=== PATIENT | female | born 1995 | race Caucasian/White ===

== ENCOUNTER 2017-03-03 15:55 | Emergency (ER) | payer BC ==
[~2017-03-03] VITALS: Ht 167.6 cm; Wt 67.8 kg
[2017-03-03 15:58] VITALS: TEMP 36.6; Ht 167.6 cm; Wt 67.8 kg
[2017-03-03] MEDS ORDERED: MULT-506 PO (16:52)
[2017-03-03] MEDS ORDERED: BCPILLS PO (16:52)
[2017-03-03] MEDS ORDERED: CHOL1000 PO (16:52)
--- NOTE | 2017-03-03 17:48 | EMERGENCY ROOM VISIT NOTE ---
History First contact with patient: 16:16 Chief Complaint: EYE ASSESSMENT Stated Complaint: BLURRY VISION IN LEFT EYE History of Present Illness The patient is a 21 year old female who presents to the Emergency Room via private vehicle with complaints of "blurry vision in left eye". Patient states that around 3 PM today she was looking at her computer screen, when she developed a sensation in the left eye as if she was not able to see directly in front of her. She describes it almost as if the computer screen had a dark [place] in it. Sternum is dark [place] was colorful jagged edges around it. She also states it seemed as though there was a hole in the computer screen. She also notes pain in the temporal region. She states that the affected eye is the left eye. She states that since her drive over here it is diminished, and is nearly subsided. She does not have any history of ocular migraines however does believe that her mother may. She denies any eye pain. Review of Systems A complete 6-point Review of Systems was discussed with the patient, with pertinent positives and negatives listed in the History of Present Illness. All remaining Review of Systems questions can be considered negative unless otherwise specified. Past Medical/Surgical History Eye surgery age 6, anxiety Family History Heart disease, high blood pressure Social History Smoking Status: Never Smoker Social History: Patient lives at home with parents when at home, and is a [employer] student. Current/Historical Medications Scheduled Control Pills ( Control Pills), 1 TAB PO DAILY Cholecalciferol (Vitamin D3), 1,000 UNIT PO DAILY Multivitamin (Multivitamin), 1 TAB PO DAILY Allergies Coded Allergies: Penicillins (Unverified Allergy, Unknown, vomiting, 03/03/17) Prednisone (Unverified Allergy, Unknown, rash, 03/03/17) Sulfa Antibiotics (Unverified Allergy, Unknown, unknown, 03/03/17) Physical Exam Vital Signs Date Time Temp Pulse Resp B/P Pulse Ox O2 Delivery O2 Flow Rate FiO2 03/03/17 17:59 77 18 118/82 99 03/03/17 15:58 36.6 85 18 153/94 99 Right Eye Acuity: 20/50 with glasses Left Eye Acuity: 20/50 with glasses Physical Exam VITAL SIGNS - Vital signs and nursing notes were reviewed. Patient is afebrile , hypertensive at 153/94, non-tachycardic and is saturating well on room air 99% . GENERAL -21-year-old female appearing her stated age. Communicates well with provider and answers questions appropriately. HEAD - Normocephalic, Atraumatic. No Knox's Sign or Raccoon's Eyes. No depressed skull fractures palpable. EYES - PERRL with EOMI bilaterally. Sclera without noticeable foreign body or excoriations. No injection noted in the left eye. Without subconjunctival hemorrhage. Brief fundoscopic exam demonstrates no AV-nicking, cotton wool spots , or flame hemorrhages. Slit lamp examination performed as further described. EARS - No deformities of external structures noted on gross examination bilaterally. Handle of malleus, umbo, cone of light, pars tensa/flaccid all easily visualized. NOSE - Midline and without cyanosis. Without discharge. MOUTH/OROPHARYNX - Without perioral cyanosis. Tongue midline with equal elevation of palate bilaterally. No tonsillar hypertrophy, erythema, or exudates noted. Fair dentition noted. NECK - FROM assessed. No cervical lymphadenopathy noted. An Automated Tonometer was utilized to obtain bilateral orbital pressures. The pressures in the LEFT eye were found to be 26, 25, 26 with an average of 25.7. The pressures in the RIGHT eye were found to be 27, 23 with an average of 25. Patient tolerated the procedure well and no complications were met. Medical Decision & Procedures Medical Decision Patient was seen and evaluated as above. After obtaining a thorough history and physical examination it was apparent the patient was likely experiencing an ocular migraine. There was no evidence of trauma to the eye. No evidence of temporal arteritis. The patient's symptoms were nearly diminished by the time she admitted here to the hospital. I did discuss the case with my attending, and subsequently the on-call software development project manager (Dr. Serrano, at 5:40pm) He stated that it does sound like she may be experiencing an ocular migraine, and we agreed that at this time imaging and lab work would probably not be beneficial. He indicated that the patient may call their office first thing tomorrow morning to schedule follow-up. I do believe this is appropriate. I this time do not suspect any emergent or life-threatening causes of her symptoms. I do believe this time she is stable for discharge. She was educated upon worrisome symptoms which return, had questions answered prior to discharge and was discharged home in good condition. In the evaluation and treatment of this patient, the following differential diagnoses were considered: Corneal Abrasion, Conjunctivitis, Eye Contusion, Globe Injury, Orbital Floor Injury (Blowout Fracture), Corneal Ulcer, Keratitis , Herpes Zoster Opthalmic, Blepharitis, Orbital Cellulitis, Iritis, Scleritis/ Episcleritis, Uveitis, Temporal Arteritis, Subconjunctival Hemorrhage. Impression Primary Impression: Blurry vision, left eye Departure Information Dispostion Home / Self-Care Condition GOOD Referrals [facility] (PCP) Pablo Serrano D.O. Patient Instructions [facility] Additional Instructions You were seen in the emergency Department for vision changes in her left eye. At this time through testing I do not suspect any emergent cause. It is recommended you call an software development project manager first thing tomorrow morning to schedule follow-up. As you indicated you may call your establish software development project manager at home or Dr. Serrano. Please return to the emergency department with any/concerning symptoms. Thank you for your time.
[2017-03-03 17:59] VITALS: BP 118/82; PULSE 77; O2SAT 99
== END 2017-03-03 18:01 | disposition home or self-care (01) ==
LOC: C.EDB 15:57 → C.EDD 18:01
DX: H53.8 Other visual disturbances (principal); Z79.3 Long term (current) use of hormonal contraceptives; Z82.49 Family history of ischemic heart disease and other diseases of the circulatory system